=== PATIENT | female | born 1975 | race Caucasian/White ===

== ENCOUNTER 2016-08-06 06:02 | Day surgery (SDC) | payer MEDICAID ==
[~2016-08-06] VITALS: Ht 160 cm; Wt 71.0 kg
[~2016-08-06 06:02] MED LIST: FOLI1TAB47 PO
[2016-08-06 06:49] VITALS: BP 159/80
[2016-08-06] MEDS ORDERED: OXYMETAZOLINE NASAL SPRAY 0.05%, 15ML ONE (06:49)
[2016-08-06] MEDS ORDERED: BACITRACIN OINT 500U/GM, 15 GM ONE (06:49)
[2016-08-06] MEDS ORDERED: BACITRACIN 50,000 UNIT ONE (06:49)
[2016-08-06] MEDS ORDERED: EPINEPHRINE TOPICAL SOLN 1 MG/ML, 30ML ONE (06:49)
[2016-08-06] MEDS ORDERED: FLUORESCEIN OPHTHALMIC 1 MG STRIP ONE (06:49)
[2016-08-06] MEDS ORDERED: LIDOCAINE 1%-EPI 1:100K, 30ML ONE (06:50)
[2016-08-06] MEDS ORDERED: KETAMINE 10 MG/ML, 20ML ONE (07:21)
[2016-08-06] MEDS ORDERED: FENTANYL PF 250 MCG/5ML ONE (07:22)
[2016-08-06] MEDS ORDERED: MIDAZOLAM 1 MG/ML, 2ML ONE (07:23)
[2016-08-06 07:35] LABS: HCG UR OBC PASS
[2016-08-06] MEDS ORDERED: LACTATED RINGERS 1,000 ML IV SCH (07:53)
[2016-08-06] MEDS ORDERED: PROMETHAZINE 25 MG/ML, 1ML IV PRN (10:00)
[2016-08-06] MEDS ORDERED: HYDROmorphone 1 MG/ML, 1ML IV PRN (10:00)
[2016-08-06] MEDS ORDERED: FENTANYL PF 100 MCG/2ML IV PRN (10:00)
[2016-08-06] MEDS ORDERED: OXYcodone 5 MG/5 ML ORAL.SOL UDC PO PRN (10:00)
[2016-08-06] MEDS ORDERED: MIDAZOLAM 1 MG/ML, 2ML IV PRN (10:00)
[2016-08-06] MEDS ORDERED: ONDANSETRON 2MG/ML, 2ML IVPush PRN (10:00)
[2016-08-06] MEDS ORDERED: hydrALAzine 20 MG/ML, 1ML IV PRN (10:00)
[2016-08-06] MEDS ORDERED: LABETALOL 5MG/ML, 20ML IV PRN (10:00)
[2016-08-06] MEDS ORDERED: PHENYLEPHRINE 10 MG/ML ONE (11:12)
[2016-08-06] MEDS ORDERED: DEXAMETHASONE 4 MG/ML, 1ML ONE (11:12)
[2016-08-06] MEDS ORDERED: PROPOFOL 10 MG/ML, 20ML ONE (11:12)
[2016-08-06] MEDS ORDERED: CEFAZOLIN 1,000 MG ONE (11:12)
[2016-08-06] MEDS ORDERED: ROCURONIUM 10 MG/ML ONE (11:12)
[2016-08-06] MEDS ORDERED: DIPHENHYDRAMINE 50 MG/ML, 1ML ONE (11:12)
== END 2016-08-06 12:25 | disposition home or self-care (01) ==
LOC: OUT 06:02
PROVIDERS: ATTEND Otolaryngology
DX: J32.0 Chronic maxillary sinusitis (principal); J32.1 Chronic frontal sinusitis; J32.2 Chronic ethmoidal sinusitis; J32.3 Chronic sphenoidal sinusitis; J33.8 Other polyp of sinus; J45.909 Unspecified asthma, uncomplicated; F41.9 Anxiety disorder, unspecified; F32.9 Major depressive disorder, single episode, unspecified; G40.909 Epilepsy, unspecified, not intractable, without status epilepticus; Z87.19 Personal history of other diseases of the digestive system; Z82.49 Family history of ischemic heart disease and other diseases of the circulatory system; Z82.5 Family history of asthma and other chronic lower respiratory diseases; Z82.3 Family history of stroke; Z83.3 Family history of diabetes mellitus
CPT/HCPCS: 31255; 31256; 31267; 31276; 31287; 81025; 88304; 88305; 88331; J0690; J1100; J1200; J2250; J2370; J2704; J3010; J3490; J7120

== ENCOUNTER 2017-09-16 06:04 | Day surgery (SDC) | payer MEDICAID ==
[~2017-09-16] VITALS: Ht 160 cm; Wt 68.1 kg
[2017-09-16 06:43] VITALS: BP 121/78
[2017-09-16] MEDS ORDERED: LIDOCAINE-MPF 1%, 5ML ONE (07:02)
[2017-09-16] MEDS ORDERED: OXYMETAZOLINE NASAL SPRAY 0.05%, 15ML ONE (07:02)
[2017-09-16] MEDS ORDERED: FLUORESCEIN OPHTHALMIC 1 MG STRIP ONE (07:02)
[2017-09-16] MEDS ORDERED: EPINEPHRINE TOPICAL SOLN 1 MG/ML, 30ML ONE (07:02)
[2017-09-16] MEDS ORDERED: EPINEPHRINE 1 MG/ML, 1ML ONE (07:03)
[2017-09-16] MEDS ORDERED: OMEP40CA6 PO (07:06)
[2017-09-16] MEDS ORDERED: MIDAZOLAM 1 MG/ML, 2ML ONE (07:16)
[2017-09-16] MEDS ORDERED: FENTANYL PF 250 MCG/5ML ONE (07:16)
[2017-09-16 07:25] LABS: HCG UR SG 1.025 (1.003-1.030)
[2017-09-16] MEDS ORDERED: ACETAMINOPHEN 500 MG TABLET PO ONE (07:30)
[2017-09-16] MEDS ORDERED: GABAPENTIN 300 MG CAPSULE PO ONE (07:30)
[2017-09-16] MEDS ORDERED: OXYcodone IR 5MG TABLET PO ONE (07:30)
[2017-09-16] MEDS ORDERED: OXYcodone IR 5MG TABLET ONE (07:32)
[2017-09-16] MEDS ORDERED: GABAPENTIN 300 MG CAPSULE ONE (07:32)
[2017-09-16] MEDS ORDERED: ACETAMINOPHEN 500 MG TABLET ONE (07:32)
[2017-09-16] MEDS ORDERED: LACTATED RINGERS 1,000 ML IV SCH (07:42)
[2017-09-16] MEDS ORDERED: SUCCINYLCHOLINE 20 MG/ML, 10ML ONE (07:44)
[2017-09-16] MEDS ORDERED: PROPOFOL 10 MG/ML, 20ML ONE (07:44)
[2017-09-16] MEDS ORDERED: CEFAZOLIN 1,000 MG ONE (07:44)
[2017-09-16] MEDS ORDERED: LABETALOL 5MG/ML 40ML VIAL ONE (07:44)
[2017-09-16] MEDS ORDERED: ROCURONIUM 10 MG/ML,10ML ONE (07:44)
[2017-09-16] MEDS ORDERED: METOCLOPRAMIDE 5 MG/ML, 2ML ONE (07:44)
[2017-09-16] MEDS ORDERED: LIDOCAINE 1%, 20ML INFIL ONE (08:20)
[2017-09-16] MEDS ORDERED: BACITRACIN OINT 500U/GM, 15 GM TP ONE (08:22)
[2017-09-16] MEDS ORDERED: hydrALAzine 20 MG/ML, 1ML IV PRN (08:30)
[2017-09-16] MEDS ORDERED: KETOROLAC 30 MG/1 ML IV PRN (08:30)
[2017-09-16] MEDS ORDERED: ONDANSETRON 2MG/ML, 2ML IVPush PRN ×2 (08:30→12:00)
[2017-09-16] MEDS ORDERED: ALBUTEROL SULFATE 2.5 MG/3 ML NPPB PRN (08:30)
[2017-09-16] MEDS ORDERED: LABETALOL 5MG/ML, 20ML IV PRN (08:30)
[2017-09-16] MEDS ORDERED: HYDROmorphone 1 MG/ML, 1ML IV PRN (08:30)
[2017-09-16] MEDS ORDERED: OXYcodone 5 MG/5 ML ORAL.SOL UDC PO PRN (08:30)
[2017-09-16] MEDS ORDERED: METOCLOPRAMIDE 5 MG/ML, 2ML IV PRN (08:30)
[2017-09-16] MEDS ORDERED: MEPERIDINE/PF 25MG/0.5ML IVPush PRN (08:30)
[2017-09-16] MEDS ORDERED: PROMETHAZINE 25 MG/ML, 1ML IV PRN (08:30)
[2017-09-16] MEDS: FENTANYL PF 100 MCG/2ML IV PRN ×2 (10:20→10:53)
[2017-09-16] MEDS ORDERED: FENTANYL PF 100 MCG/2ML ONE (10:25)
[2017-09-16] MEDS ORDERED: PROMETHAZINE 25 MG/ML, 1ML ONE (10:43)
[2017-09-16] MEDS ORDERED: ONDANSETRON 2MG/ML, 2ML ONE (11:52)
[2017-09-16] MEDS ORDERED: HYDROcodone/APAP 5/325 TABLET PO PRN (12:00)
== END 2017-09-16 13:25 ==
LOC: OUT 06:04
PROVIDERS: ATTEND Otolaryngology
DX: J32.2 Chronic ethmoidal sinusitis (principal); J33.9 Nasal polyp, unspecified
CPT/HCPCS: 31254; 31267; 31276; 31287; 61782; 81025; 88304; J0171; J0330; J0690; J2250; J2405; J2550; J2704; J2765; J3010; J3490; J7120